=== PATIENT | male | born 1945 | race Caucasian/White ===

== ENCOUNTER 2017-07-29 07:32 | Inpatient (IN) | payer OTHER ==
[~2017-07-29] VITALS: Ht 172.7 cm; Wt 109.9 kg
--- NOTE | ~2017-07-29 | EKG ---
[place], [place] ELECTROCARDIOGRAM REPORT NAME: BETTY PETERS UNIT #: [id number] ROOM: 428 DOCTOR: MARS JONES,GIO BIRTHDATE: [birth year] DOS: 07/29/2017 TIME: 6107 hours. IMPRESSION: 1. Sinus rhythm. 2. Nonspecific ST-T changes. 3. Sinus bradycardia. GIO CREWS MD CM:EKGRPT:ELECTROCARDIOGRAM REPORT 1511 1711 GIO CREWS MD
--- NOTE | ~2017-07-29 | EKG ---
[place], [place] ELECTROCARDIOGRAM REPORT NAME: BETTY PETERS UNIT #: [id number] ROOM: 428 DOCTOR: MARS JONES,GIO BIRTHDATE: [birth year] DOS: 07/29/2017 TIME: 10:50 a.m. IMPRESSION: 1. Sinus rhythm, sinus bradycardia. 2. Poor R-wave progression. 3. Normal QT interval. GIO CREWS MD CM:EKGRPT:ELECTROCARDIOGRAM REPORT 1527 1843 GIO CREWS MD
--- NOTE | ~2017-07-29 | EKG ---
[place], [place] ELECTROCARDIOGRAM REPORT NAME: BETTY PETERS UNIT #: [id number] ROOM: 428 DOCTOR: MARS JONES,GIO BIRTHDATE: [birth year] DOS: 07/29/2017 TIME: 7:39 a.m. IMPRESSION: 1. Sinus rhythm. 2. Nonspecific ST-T changes. 3. Normal QT interval. GIO CREWS MD CM:EKGRPT:ELECTROCARDIOGRAM REPORT 1527 1841 GIO CREWS MD
[2017-07-29 07:38] VITALS: BP 211/98
[2017-07-29 08:00] VITALS: BP 210/102
[2017-07-29 08:03] LABS: BASO % 0.5 % (0.0-1.0); EOS # 0.1 10*3/uL (0.0-0.4); HEMATOCRIT 44.6 % (42.0-52.0); HEMOGLOBIN 14.8 g/dl (14.0-18.0); LYMPH # 1.4 10*3/uL (1.3-4.4); MEAN CORPUSCULAR HGB 27.9 pg (27.0-31.0); MEAN CORPUSCULAR HGB CONC 33.2 g/dl (33.0-37.0); MONO # 0.4 10*3/uL (0.1-1.0); MONO % 6.7 % (3.0-9.0); NEUT # 4.4 10*3/uL (2.3-7.9); NEUT % 68.5 % (47.0-73.0); PLATELET COUNT AUTOMATED 155 10*3/uL (130-400); RED BLOOD COUNT 5.31 10*6/uL (4.50-5.90); WHITE BLOOD COUNT 6.5 10*3/uL (4.8-10.8)
[2017-07-29 08:18] LABS: ACT PARTIAL THROMBO TIME 28.6 SECONDS (20.8-31.5)
[2017-07-29 08:21] VITALS: BP 180/90; BP 190/95
[2017-07-29 08:21] LABS: ALBUMIN 3.5 gm/dl (3.1-4.5); ALKALINE PHOSPHATASE 130 U/L (45-117); BUN 13 mg/dl (7-24); CHLORIDE 105 mmol/L (98-107); CREATININE 0.86 mg/dL (0.70-1.30); POTASSIUM 5.2 mmol/L (3.5-5.1); SGOT/AST 19 IU/L (3-35); SGPT/ALT 24 U/L (12-78); SODIUM 140 mmol/L (136-145); TOTAL PROTEIN 7.8 gm/dL (6.4-8.2)
[2017-07-29 08:25] LABS: TROPONIN I < 0.015 ng/ml (<0.045)
[2017-07-29] MEDS ORDERED: METFORMIN500 MG PO (08:55)
[2017-07-29] MEDS ORDERED: TENORMIN100 MG PO (08:56)
[2017-07-29] MEDS ORDERED: LISINOPRIL20 MG PO (08:56)
[2017-07-29] MEDS ORDERED: ASPIRIN CHEWABL81 MG PO (08:56)
[2017-07-29] MEDS ORDERED: LIPITOR80 MG PO (08:57)
[2017-07-29] MEDS ORDERED: GLIPIZIDE2.5 MG PO (08:58)
--- NOTE | 2017-07-29 09:06 | NUR ---
CCAA 72, admitted to , under the services of MORE Quintanilla DO with a diagnosis of CHEST PAIN. Chief complaint is NO VOICED COMPLAINTS. Patient arrived via bed from ER. Monitor applied. Initial assessment completed. Vital signs taken and recorded. MORE QUINTANILLA DO notified of admission to the unit. Orders received. See assessment for past medical history, medications and allergies. Patient and/or family oriented to unit. [facility]. Clothing/patient valuable form completed. MINISTERIO BARNETT
[2017-07-29 12:00] VITALS: BP 150/70
--- NOTE | 2017-07-29 14:08 | NUR ---
TYLENOL GIVEN FOR C/O HEADACHE. WILL MONITOR.
--- NOTE | 2017-07-29 15:10 | NUR ---
TYLENOL EFFECTIVE PER PT.
--- NOTE | 2017-07-29 15:14 | NUR ---
Received message to call patients son, Carlos Rider. Son is concerned about patients increased "memory" problems and fears patient is not taking his meds the way he should be. Son lives in [place], daughter lives in [place], so family is not very involved with patient on a regular basis. He asked for a packet for health care power of estate planning attorney, which i provided to the patient. He also asked about finding an assisted living facility as well as getting patient on medicaid. I provided son's cell phone number to JANE García and asked her to call son and discuss further.
[2017-07-29 16:00] VITALS: BP 156/76
--- NOTE | 2017-07-29 16:22 | NUR ---
SW MEET WITH SON REFUGIO. SW PROVIDED INFORMATION ON IN-HOME SERVICES WITH [facility] ON [facility], [facility], DEPT. JOB AND FAMILY SERVICES, AND ASSISTED LIVING FACILITIES. SW EXPLAINED HOW TO FILL OUT DPOAHC AND LIVING WILL TO SON AND PROVIDED A COPY.
--- NOTE | 2017-07-29 18:36 | NUR ---
TYLENOL GIVEN FOR C/O HEADACHE. WILL MONITOR.
[2017-07-29 20:00] VITALS: BP 118/80; BP 131/69
[2017-07-30] VITALS: BP 118/63
[2017-07-30 06:37] LABS: BASO # 0.1 10*3/uL (0.0-0.1); BASO % 0.7 % (0.0-1.0); EOS # 0.1 10*3/uL (0.0-0.4); EOS % 1.7 % (1.0-4.0); HEMATOCRIT 41.1 % (42.0-52.0); HEMOGLOBIN 13.5 g/dl (14.0-18.0); LYMPH # 1.2 10*3/uL (1.3-4.4); LYMPH % 16.4 % (27.0-41.0); MEAN CELL VOLUME 84.4 fl (80.0-94.0); MEAN CORPUSCULAR HGB 27.7 pg (27.0-31.0); MEAN CORPUSCULAR HGB CONC 32.8 g/dl (33.0-37.0); MEAN PLATELET VOLUME 11.9 fl (9.6-12.3); MONO # 0.5 10*3/uL (0.1-1.0); MONO % 7.3 % (3.0-9.0); NEUT # 5.4 10*3/uL (2.3-7.9); NEUT % 73.6 % (47.0-73.0); PLATELET COUNT AUTOMATED 154 10*3/uL (130-400); RED BLOOD COUNT 4.87 10*6/uL (4.50-5.90); WHITE BLOOD COUNT 7.3 10*3/uL (4.8-10.8)
[2017-07-30 07:11] LABS: ALBUMIN 3.2 gm/dl (3.1-4.5); BUN 15 mg/dl (7-24); CHLORIDE 106 mmol/L (98-107); POTASSIUM 4.9 mmol/L (3.5-5.1); SODIUM 140 mmol/L (136-145)
[2017-07-30 07:20] LABS: ALKALINE PHOSPHATASE 121 U/L (45-117); CHOLESTEROL 176 mg/dL (<200); CREATININE 0.85 mg/dL (0.70-1.30); FREE T4 1.02 ng/dl (0.76-1.46); HDL CHOLESTEROL 39 mg/dl (40-60); LDL CHOLESTEROL 108 mg/dL (9-159); PHOSPHOROUS 3.8 mg/dL (2.5-4.9); SGOT/AST 18 IU/L (3-35); SGPT/ALT 21 U/L (12-78); TRIGLYCERIDES 143 mg/dl (<150); VLDL CHOLESTEROL 29 mg/dL (6-40)
[2017-07-30 08:00] VITALS: BP 122/55
[2017-07-30 08:19] LABS: VITAMIN D, 25-HYDROXY 13.9 ng/mL (30-100)
[2017-07-30] MEDS ORDERED: VITAMIN D-32000 UNI1 PO (11:05)
[2017-07-30] MEDS ORDERED: IMDUR SA60 M1 PO (11:05)
--- NOTE | 2017-07-30 11:24 | NUR ---
PT ST[facility] THAT [facility].
--- NOTE | 2017-07-30 11:33 | NUR ---
PATIENT DISCHARGED VIA WHEELCHAIR WITH SISTER TO HOME. AV BRASHER RN
--- NOTE | 2017-07-30 11:34 | NUR ---
Discharge instructions reviewed with patient/family. Patient receptive and verbalizes understanding. Follow-up care arranged. Written instructions given to patient/family. AV BRASHER
== END 2017-07-30 11:34 | disposition home or self-care (01) | DRG 305 ==
LOC: ED 07:32 → EDHOLD 08:00 → 4E 08:05
PROVIDERS: Emergency Medicine; Registered Nurse; ADMIT Internal Medicine
DX: I16.1 Hypertensive emergency (principal); E11.65 Type 2 diabetes mellitus with hyperglycemia; E78.00 Pure hypercholesterolemia, unspecified; E66.09 Other obesity due to excess calories; I10 Essential (primary) hypertension; Z82.49 Family history of ischemic heart disease and other diseases of the circulatory system; Z79.899 Other long term (current) drug therapy; Z98.84 Bariatric surgery status; Z80.8 Family history of malignant neoplasm of other organs or systems; Z79.82 Long term (current) use of aspirin; Z68.36 Body mass index [BMI] 36.0-36.9, adult

== ENCOUNTER 2018-04-10 16:26 | Emergency (ER) | payer MEDICARE ==
[~2018-04-10] VITALS: Ht 175.2 cm; Wt 110.7 kg
--- NOTE | ~2018-04-10 | EKG ---
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
[~2018-04-10 16:26] MED LIST: ASPIRIN CHEWABL81 MG PO; GLIPIZIDE2.5 MG PO; IMDUR SA60 M1 PO; LIPITOR80 MG PO; LISINOPRIL20 MG PO; METFORMIN500 MG PO; TENORMIN100 MG PO; VITAMIN D-32000 UNI1 PO
[2018-04-10 17:58] LABS: BASO # 0.1 10*3/uL (0.0-0.1); BASO % 0.6 % (0.0-1.0); EOS # 0.2 10*3/uL (0.0-0.4); EOS % 2.2 % (1.0-4.0); HEMATOCRIT 42.5 % (42.0-52.0); LYMPH # 1.8 10*3/uL (1.3-4.4); LYMPH % 23.3 % (27.0-41.0); MEAN CELL VOLUME 84.5 fl (80.0-94.0); MEAN CORPUSCULAR HGB 27.8 pg (27.0-31.0); MEAN CORPUSCULAR HGB CONC 32.9 g/dl (33.0-37.0); MEAN PLATELET VOLUME 10.9 fl (9.6-12.3); MONO # 0.6 10*3/uL (0.1-1.0); MONO % 7.1 % (3.0-9.0); NEUT # 5.1 10*3/uL (2.3-7.9); NEUT % 66.5 % (47.0-73.0); PLATELET COUNT AUTOMATED 168 10*3/uL (130-400); RED BLOOD COUNT 5.03 10*6/uL (4.50-5.90); RED CELL DISTRI WIDTH 14.7 % (0-14.5); WHITE BLOOD COUNT 7.7 10*3/uL (4.8-10.8)
[2018-04-10 18:14] LABS: ALBUMIN 3.4 gm/dl (3.1-4.5); ALKALINE PHOSPHATASE 165 U/L (45-117); BUN 9 mg/dl (7-24); CHLORIDE 108 mmol/L (98-107); CREATININE 0.75 mg/dL (0.70-1.30); POTASSIUM 4.8 mmol/L (3.5-5.1); SGOT/AST 20 IU/L (3-35); SGPT/ALT 29 U/L (12-78); SODIUM 144 mmol/L (136-145); TOTAL PROTEIN 7.3 gm/dL (6.4-8.2)
[2018-04-10 18:16] LABS: TROPONIN I < 0.015 ng/ml (<0.045)
== END 2018-04-10 20:02 | disposition home or self-care (01) ==
LOC: ED 16:26
PROVIDERS: Nurse Practitioner Family
DX: I10 Essential (primary) hypertension (principal); E11.9 Type 2 diabetes mellitus without complications; E78.5 Hyperlipidemia, unspecified; Z79.899 Other long term (current) drug therapy; Z79.82 Long term (current) use of aspirin; Z98.84 Bariatric surgery status

== ENCOUNTER → 2019-04-17 | Outpatient (CLI) | payer OTHER | END | disposition home or self-care (01) | LOC: RAD 09:45 | DX: M17.11 Unilateral primary osteoarthritis, right knee (principal); M25.761 Osteophyte, right knee; M79.89 Other specified soft tissue disorders; R60.0 Localized edema ==

== ENCOUNTER → 2019-10-15 | Outpatient (CLI) | payer OTHER ==
[~2019-10-15] MED LIST changes: +AMLODIPINE BESY10 MG PO; +ARTIFICIAL TEA1 EACH OU; +DONEPEZIL HCL10 MG PO; +GLUCOPHAGE1000 MG PO; +HYDROCHLOROTH12.5 M3 PO; +LANTUS SOL100 UNIT/1 SQ; -METFORMIN500 MG PO; +NAMENDA5 M1 PO; +NATURE'S BLEND F1 MG PO; +OMEPRAZOLE20 M2 PO; +ZESTRIL20 MG PO
== END ==
LOC: MRI 10-12 09:00
DX: F03.90 Unspecified dementia, unspecified severity, without behavioral disturbance, psychotic disturbance, mood disturbance, and anxiety (principal); R41.0 Disorientation, unspecified; I10 Essential (primary) hypertension; Z90.12 Acquired absence of left breast and nipple

== ENCOUNTER 2019-10-22 11:58 | Inpatient (IN) | payer OTHER ==
[~2019-10-22] VITALS: Ht 182.8 cm; Wt 117.9 kg
[~2019-10-22 11:58] MED LIST changes: -AMLODIPINE BESY10 MG PO; -ARTIFICIAL TEA1 EACH OU; -DONEPEZIL HCL10 MG PO; -HYDROCHLOROTH12.5 M3 PO; -LANTUS SOL100 UNIT/1 SQ; -NAMENDA5 M1 PO; -NATURE'S BLEND F1 MG PO; -OMEPRAZOLE20 M2 PO; -ZESTRIL20 MG PO
[2019-10-22 12:01] VITALS: BP 132/72
[2019-10-22 12:39] LABS: HEMATOCRIT 42.9 % (42.0-52.0); HEMOGLOBIN 13.8 g/dl (14.0-18.0); MEAN CELL VOLUME 87.2 fl (80.0-94.0); MEAN CORPUSCULAR HGB CONC 32.2 g/dl (33.0-37.0); MEAN PLATELET VOLUME 11.7 fl (9.6-12.3); PLATELET COUNT AUTOMATED 203 10*3/uL (130-400); RED BLOOD COUNT 4.92 10*6/uL (4.50-5.90); RED CELL DISTRI WIDTH 14.8 % (0-14.5); WHITE BLOOD COUNT 16.5 10*3/uL (4.8-10.8)
[2019-10-22 12:51] LABS: ACT PARTIAL THROMBO TIME 26.7 SECONDS (20.0-32.1); INTERNATIONAL NORM RATIO 0.9 (2.0-3.5)
[2019-10-22 12:58] LABS: ALBUMIN 3.4 gm/dl (3.1-4.5); ALKALINE PHOSPHATASE 101 U/L (45-117); BUN 17 mg/dl (7-24); CHLORIDE 105 mmol/L (98-107); CREATININE 1.08 mg/dL (0.70-1.30); SGOT/AST 9 IU/L (3-35); SGPT/ALT 16 U/L (12-78); SODIUM 139 mmol/L (136-145); TOTAL PROTEIN 7.6 gm/dL (6.4-8.2)
[2019-10-22 13:10] LABS: TOTAL CELLS COUNTED 100 #CELLS
[2019-10-22 13:11] LABS: BURR CELLS FEW; PLATELET SUFFICIENCY NORMAL (NORMAL); TROPONIN I < 0.015 ng/ml (<0.045)
[2019-10-22] MEDS ORDERED: NAMENDA5 M1 PO (13:38)
[2019-10-22 13:40] LABS: COLOR YELLOW (YELLOW)
[2019-10-22 13:41] LABS: BILIRUBIN NEGATIVE (NEGATIVE); BLOOD NEGATIVE (NEGATIVE); CLARITY SL CLOUDY (CLEAR); GLUCOSE NEGATIVE (NEGATIVE); KETONE NEGATIVE (NEGATIVE); LEUKO ESTERASE NEGATIVE (NEGATIVE); NITRITE NEGATIVE (NEGATIVE); SPECIFIC GRAVITY 1.025 (1.005-1.030)
[2019-10-22] MEDS ORDERED: OMEPRAZOLE20 M2 PO (13:42)
[2019-10-22] MEDS ORDERED: DONEPEZIL HCL10 MG PO (13:43)
[2019-10-22] MEDS ORDERED: ARTIFICIAL TEA1 EACH OU (13:44)
[2019-10-22] MEDS ORDERED: LANTUS SOL100 UNIT/1 SQ (13:46)
[2019-10-22] MEDS ORDERED: AMLODIPINE BESY10 MG PO (13:47)
[2019-10-22] MEDS ORDERED: HYDROCHLOROTH12.5 M3 PO (13:48)
[2019-10-22 13:49] LABS: BACTERIA 2+
[2019-10-22] MEDS ORDERED: ZESTRIL20 MG PO (13:49)
[2019-10-22 17:00] VITALS: BP 119/61
[2019-10-22 20:00] VITALS: BP 109/44
[2019-10-23] VITALS: BP 120/58
[2019-10-23 07:21] LABS: HEMOGLOBIN 12.1 g/dl (14.0-18.0); MEAN CELL VOLUME 86.9 fl (80.0-94.0); MEAN CORPUSCULAR HGB 28.4 pg (27.0-31.0); MEAN CORPUSCULAR HGB CONC 32.7 g/dl (33.0-37.0); MEAN PLATELET VOLUME 12.6 fl (9.6-12.3); PLATELET COUNT AUTOMATED 163 10*3/uL (130-400); RED BLOOD COUNT 4.26 10*6/uL (4.50-5.90); RED CELL DISTRI WIDTH 15.1 % (0-14.5); WHITE BLOOD COUNT 22.5 10*3/uL (4.8-10.8)
[2019-10-23 07:35] LABS: ACT PARTIAL THROMBO TIME 32.9 SECONDS (20.0-32.1); INTERNATIONAL NORM RATIO 1.1 (2.0-3.5)
[2019-10-23 07:42] LABS: BUN 23 mg/dl (7-24); CHLORIDE 111 mmol/L (98-107); CHOLESTEROL 86 mg/dL (<200); CREATININE 1.09 mg/dL (0.70-1.30); PHOSPHOROUS 1.9 mg/dL (2.5-4.9); POTASSIUM 3.5 mmol/L (3.5-5.1); SODIUM 142 mmol/L (136-145); TRIGLYCERIDES 83 mg/dl (<150); VLDL CHOLESTEROL 17 mg/dL (6-40)
[2019-10-23 07:50] LABS: FREE T4 1.74 ng/dl (0.76-1.46); HDL CHOLESTEROL 47 mg/dl (40-60)
[2019-10-23 07:54] LABS: LDL CHOLESTEROL 22 mg/dL (9-159)
[2019-10-23 08:02] LABS: TOTAL CELLS COUNTED 100 #CELLS
[2019-10-23 08:03] LABS: ACANTHOCYTES FEW; BURR CELLS MODERATE; PLATELET SUFFICIENCY NORMAL (NORMAL)
[2019-10-23 08:31] LABS: VITAMIN D, 25-HYDROXY 24.5 ng/mL (30-100)
[2019-10-23 12:00] VITALS: BP 134/54
[2019-10-23 16:00] VITALS: BP 114/85
[2019-10-23 20:00] VITALS: BP 100/75
[2019-10-24] VITALS: BP 98/61
[2019-10-24 06:26] LABS: HEMATOCRIT 36.9 % (42.0-52.0); HEMOGLOBIN 11.9 g/dl (14.0-18.0); MEAN CELL VOLUME 86.6 fl (80.0-94.0); MEAN CORPUSCULAR HGB 27.9 pg (27.0-31.0); MEAN CORPUSCULAR HGB CONC 32.2 g/dl (33.0-37.0); MEAN PLATELET VOLUME 12.1 fl (9.6-12.3); PLATELET COUNT AUTOMATED 151 10*3/uL (130-400); RED BLOOD COUNT 4.26 10*6/uL (4.50-5.90); RED CELL DISTRI WIDTH 15.4 % (0-14.5); WHITE BLOOD COUNT 19.4 10*3/uL (4.8-10.8)
[2019-10-24 06:48] LABS: ALBUMIN 2.5 gm/dl (3.1-4.5); BUN 30 mg/dl (7-24); CHLORIDE 111 mmol/L (98-107); PHOSPHOROUS 2.8 mg/dL (2.5-4.9); POTASSIUM 3.4 mmol/L (3.5-5.1); SGOT/AST 167 IU/L (3-35); SGPT/ALT 145 U/L (12-78); SODIUM 142 mmol/L (136-145); TOTAL PROTEIN 6.2 gm/dL (6.4-8.2)
[2019-10-24 06:50] LABS: ALKALINE PHOSPHATASE 176 U/L (45-117)
[2019-10-24 07:02] LABS: PLATELET SUFFICIENCY NORMAL (NORMAL); TOTAL CELLS COUNTED 100 #CELLS
[2019-10-24 07:03] LABS: BURR CELLS MODERATE
[2019-10-24 12:00] VITALS: BP 147/67
[2019-10-24] MEDS ORDERED: NATURE'S BLEND F1 MG PO (15:05)
[2019-10-24 16:00] VITALS: BP 152/65
== END 2019-10-24 20:34 | disposition short-term general hospital (02) | DRG 871 ==
LOC: ED 11:58 → 4E 15:06 → EDHOLD 15:06 → 4E 16:02
PROVIDERS: Emergency Medicine; Internal Medicine; ADMIT Internal Medicine
DX: A41.9 Sepsis, unspecified organism (principal); G93.41 Metabolic encephalopathy; J18.9 Pneumonia, unspecified organism; F02.81 Dementia in other diseases classified elsewhere, unspecified severity, with behavioral disturbance; J98.11 Atelectasis; K81.0 Acute cholecystitis; E78.00 Pure hypercholesterolemia, unspecified; D64.9 Anemia, unspecified; R65.20 Severe sepsis without septic shock; E11.65 Type 2 diabetes mellitus with hyperglycemia; R26.2 Difficulty in walking, not elsewhere classified; I10 Essential (primary) hypertension; G30.9 Alzheimer's disease, unspecified; K21.9 Gastro-esophageal reflux disease without esophagitis; E87.8 Other disorders of electrolyte and fluid balance, not elsewhere classified; E83.39 Other disorders of phosphorus metabolism; E53.8 Deficiency of other specified B group vitamins; Z98.84 Bariatric surgery status; Z79.82 Long term (current) use of aspirin; Z79.899 Other long term (current) drug therapy; Z79.4 Long term (current) use of insulin; Z87.891 Personal history of nicotine dependence; Z80.9 Family history of malignant neoplasm, unspecified; Z68.39 Body mass index [BMI] 39.0-39.9, adult